=== PATIENT | male | born 1960 | race Native Hawaiian/Other Pacific Islander ===

== ENCOUNTER 2017-06-26 09:52 | Emergency (ER) | payer SELFPAY ==
[~2017-06-26] VITALS: Ht 165.1 cm; Wt 78.6 kg
[2017-06-26] MEDS ORDERED: ATOR40TA28 PO (09:56)
[2017-06-26] MEDS ORDERED: FENO48TA15 PO (09:56)
[2017-06-26 10:06] VITALS: BP 138/83
[2017-06-26] MEDS ORDERED: KETOROLAC TROMETHAMINE 10 MG TABLET PO ONE (10:30)
== END 2017-06-26 10:43 | disposition home or self-care (01) ==
LOC: EMS 09:56
DX: Z04.1 Encounter for examination and observation following transport accident (principal); M54.9 Dorsalgia, unspecified; E78.00 Pure hypercholesterolemia, unspecified; V49.40XA Driver injured in collision with unspecified motor vehicles in traffic accident, initial encounter; Y93.89 Activity, other specified; Y92.89 Other specified places as the place of occurrence of the external cause; Y99.8 Other external cause status
CPT/HCPCS: 99282